=== PATIENT | female | born 1970 | race Caucasian/White ===

== ENCOUNTER 2022-01-26 06:42 | Outpatient (CLI) | payer MEDICAID, SELFPAY | END 2022-01-26 06:43 | disposition home or self-care (01) | LOC: AMB 02-03 12:20 | PROVIDERS: Visit Provider Family Medicine | DX: T76.21XA Adult sexual abuse, suspected, initial encounter (principal) | CPT/HCPCS: A0425; A0427 ==

== ENCOUNTER 2022-01-26 07:25 | Emergency (ER) | payer MEDICAID, SELFPAY ==
[2022-01-26 07:39] VITALS: BP 92/59; PULSE 91; RESP 22; TEMP 36.3; O2SAT 98; BMI 19.2
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
--- NOTE | 2022-01-26 08:09 | ED.NURSE ---
Pt requesting to see DAVID nurse. HERNANDEZ nurse paged.
--- NOTE | 2022-01-26 08:20 | ED.NURSE ---
DAVID nurseErica, returned call. ETA 1.5 hours
[2022-01-26 08:56] LABS: Chloride* 99 mmol/L (96-114); Potassium* 3.4 mmol/L (3.6-5.1); Sodium* 137 mmol/L (135-149)
[2022-01-26 08:57] LABS: Albumin* 4.2 g/dL (3.3-5.0)
[2022-01-26 08:59] LABS: Blood Urea Nitrogen* 27 mg/dL (7-30); Carbon Dioxide* 29 mmol/L (20-32); Creatinine* 1.2 mg/dL (0.5-1.5); Est. Creatinine Clearance* 41.23; Estimated Glomerular Filt Rate 54.46; Glucose* 92 mg/dL (60-115)
[2022-01-26 09:00] LABS: Alkaline Phosphatase* 126 U/L (40-150); Aspartate Amino Transferase* 41 U/L (12-35); Bilirubin Direct* 0.3 mg/dL (0.0-0.5); Bilirubin Total* 0.3 mg/dL (0.1-1.5); Calcium* 8.9 mg/dL (8.4-10.6); Total Protein* 6.9 g/dL (6.0-8.3)
[2022-01-26 09:01] LABS: Alanine Aminotransferase* 26 U/L (4-35); Ethanol* 0.18 % (0.01-0.03)
[2022-01-26 09:10] LABS: Acetaminophen* < 10.0 ug/mL (10.0-30.0); Salicylate* < 1.0 mg/dL (1.0-10)
--- NOTE | 2022-01-26 10:48 | ED.NURSE ---
safety investigator/cause analyst has been in to speak with pt. DAVID nurse arrived and will see pt.
[2022-01-26 11:36] LABS: Amphetamine Screen Urine POSITIVE (Negative); Barbiturate Screen Urine Negative (Negative); Benzodiazepines Screen Urine Negative (Negative); Cannabinoid Screen Urine POSITIVE (Negative); Cocaine Screen Urine Negative (Negative); Methadone Screen Urine Negative (Negative); Methamphetamines Screen Urine POSITIVE (Negative); Opiate Screen Urine Negative (Negative); Oxycodone Screen Urine Negative (Negative); Phencyclidine Screen Urine Negative (Negative); Tricyclic Antidepressant Urine Negative (Negative)
[2022-01-26 12:11] VITALS: BP 111/95; RESP 22; TEMP 35.7; O2SAT 98
--- NOTE | 2022-01-26 12:14 | ED.NURSE ---
per security and policy, her marijuana tin with lai razor blades and substance was disposed of. dr farris did place her on a transport hold as he is wanting her to go to a detox center.
--- NOTE | 2022-01-26 12:15 | ED.NURSE ---
Pt offered meal tray. pt declined. Water given.
[2022-01-26 13:45] LABS: SARS PCR* Negative SARS-CoV-2 (Negative)
--- NOTE | 2022-01-26 13:51 | ED.NURSE ---
Spoke with nurse at detox, lab faxed per request.
--- NOTE | 2022-01-26 14:15 | ED.NURSE ---
Acceptance to [facility], [address] [place] [address]
--- NOTE | 2022-01-26 14:17 | ED.NURSE ---
Dispatch called for transport.
--- NOTE | 2022-01-26 14:42 | ED.NURSE ---
Pt and belongings transfered to detox via [facility].
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
[2022-01-26 16:54] LABS: Ethanol* < 0.01 % (0.01-0.03)
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
--- NOTE | 2022-01-26 17:59 | ED.NURSE ---
Meal tray ordered for pt. Pt is ok to d/c. Attempting to arrange a ride.
--- NOTE | 2022-01-27 01:29 | ED.NURSE ---
Pt thankful for taxi ride to friend, Pt did place call using own cellphone to alert of her departure and anticipated arrival. Pt did stop at [facility] en route out of ER.
== END 2022-01-27 01:36 ==
PROVIDERS: Emergency Provider Family Medicine
DX: T76.21XA Adult sexual abuse, suspected, initial encounter (principal); F10.10 Alcohol abuse, uncomplicated
CPT/HCPCS: 36415; 80048; 80076; 80143; 80179; 80306; 81001; 82077; 87635; 99283